=== PATIENT | male | born 1950 | race Caucasian/White ===

== ENCOUNTER 2019-04-10 01:51 | Emergency (ER) | payer MEDICARE ==
[~2019-04-10] VITALS: Ht 177.8 cm; Wt 97.3 kg
[~2019-04-10 01:51] MED LIST: AMLO10TA PO; ASPI-611 PO; ATOR20TA66 PO; BENA20TA76 PO; CALC-793 PO; DICL75TA5 PO; HYDR-4353 PO; KETO15CR2 TOP; LEVO75TA7 PO; MAGN400C PO; METF-436 PO; MULT-955 PO; ZOLP5TAB8 PO
[2019-04-10] MEDS ORDERED: LIDOcaine Viscous 15ml cup PO ONE (03:25)
[2019-04-10] MEDS ORDERED: mag hydrox/Alum hydrox/simeth 30ml oral suspension PO ONE (03:25)
[2019-04-10] MEDS ORDERED: normal saline 1000ML IV soln IVB ONE (03:25)
[2019-04-10] MEDS ORDERED: iohexol 300mg/ml 100ml inj. ONE (03:31)
--- NOTE | 2019-04-10 03:31 | NUR ---
DR SHERWOOD AT [facility] AND ORDERING CT OF NECK WITH CONTRAST. PT WITH STABLE VS. GIVEN LIDOCAIN AND MALOXX.
--- NOTE | 2019-04-10 03:57 | NUR ---
LABS DRAWN, PIV IN PLACE NS 500 LITER BOLUS INFUSING. PT REPORTS NO CHANGE IN PAIN AFTER MALOX AND LIDOCAINE.
[2019-04-10] MEDS ORDERED: MESSAGE TO NURSING PO NR (04:00)
[2019-04-10 04:20] LABS: BASOPHILS # (AUTO) 0.2 X10'3 (0-0.2); HEMOGLOBIN 14.7 g/dl (14.0-17.9); MEAN CORPUSCULAR HEMOGLOBIN 30.2 PG (27.0-31.0)
[2019-04-10 04:21] LABS: BASOPHILS % (AUTO) 1.2 % (0-1); EOSINOPHILS # (AUTO) 0.4 X10'3 (0-0.9); EOSINOPHILS % (AUTO) 3.2 % (0-6); HEMATOCRIT 43.8 % (42.0-52.0); LYMPHOCYTES # (AUTO) 1.6 X10'3 (1.1-4.8); LYMPHOCYTES % (AUTO) 12.9 % (21-51); MEAN CORPUSCULAR HGB CONC 33.5 g/dL (33.0-36.5); MEAN CORPUSCULAR VOLUME 90.2 FL (78-98); MEAN PLATELET VOLUME 8.5 FL (7.4-10.4); MONOCYTES % (AUTO) 7.6 % (2-12); NEUTROPHILS # (AUTO) 9.5 X10'3 (1.8-7.7); NEUTROPHILS % (AUTO) 75.1 % (42-75); PLATELET COUNT 271 X10'3 (140-440); RED BLOOD COUNT 4.86 X10'6 (4.70-6.10); RED CELL DISTRIBUTION WIDTH 14.6 % (11.5-14.5); WHITE BLOOD COUNT 12.7 X10'3 (4.5-11.0)
[2019-04-10 04:22] LABS: ALANINE AMINOTRANSFERASE 63 U/L (12-78); ALBUMIN 4.3 G/DL (3.4-5.0); ALBUMIN/GLOBULIN RATIO 1.1 (1.1-1.5); ALKALINE PHOSPHATASE 51 IU/L (46-116); ANION GAP 9 (8-16); ASPARTATE AMINO TRANSFERASE 30 U/L (10-37); BILIRUBIN,TOTAL 0.7 MG/DL (0.1-1.0); CALCIUM 8.9 MG/DL (8.5-10.1); CHLORIDE 103 MMOL/L (99-107); CREATININE 1.07 MG/DL (0.60-1.10); GLUCOSE 117 MG/DL (70-104); POTASSIUM 4.3 MMOL/L (3.5-5.1); SODIUM 138 MMOL/L (135-145); TOTAL CARBON DIOXIDE 25.9 MMOL/L (24-32); TOTAL PROTEIN 8.2 G/DL (6.4-8.2); eGFR 69 ML/MIN
[2019-04-10 04:27] LABS: BLOOD UREA NITROGEN 15 MG/DL (7-18)
--- NOTE | 2019-04-10 04:38 | NUR ---
PT AMBULASTED TO CT WITH CONTINUITY EDITOR
--- NOTE | 2019-04-10 05:05 | NUR ---
AWAITING CT RESULTS. DR. SHERWOOD UPDATED THAT PT WITH NO IMPROVEMENT IN HIS PAIN AFTER GIVEN LIDOCAINE AND MALOX, SHE RERPOTS SHE WILL REEVALUATE WHE CT RESULT IS IN . PT WITH STABLE VS.
[2019-04-10] MEDS ORDERED: LIDOcaine 1% W/epiNEPHrine 1:100,000 20ml vial IJ ONE (05:10)
--- NOTE | 2019-04-10 05:30 | NUR ---
DR ABDULLAHI AT BEDSIDE TO ASPIRATE FLUID OF THOART ABCESS. PT TOLERATED APPROPIRATLY NO ACUTE DISTRESS NOTED
[2019-04-10] MEDS ORDERED: clindamycin 150mg capsule PO ONE (06:15)
--- NOTE | 2019-04-10 06:15 | NUR ---
REMINDED PT THAT HE IS NOT TO TAKE METAFORIN FOR 48 HR PAST 04/10/19 [id number]
[2019-04-10] MEDS ORDERED: clindamycin 600mg/D5W 50ml 50 ML IV ONE (06:20)
[2019-04-10] MEDS ORDERED: CLIN-96 PO (06:29)
[2019-04-10] MEDS ORDERED: HYDR-3965 PO (06:29)
[2019-04-10] MEDS ORDERED: ibuprofen 200mg tablet PO ONE (06:35)
--- NOTE | 2019-04-10 06:57 | NUR ---
awaiting iv abt to finished.
[2019-04-10 07:31] VITALS: BP 135/79
== END 2019-04-10 07:33 | disposition home or self-care (01) ==
LOC: ER 01:52
DX: J36 Peritonsillar abscess (principal); E78.00 Pure hypercholesterolemia, unspecified; I10 Essential (primary) hypertension; G47.30 Sleep apnea, unspecified; E11.9 Type 2 diabetes mellitus without complications; E07.9 Disorder of thyroid, unspecified; G89.29 Other chronic pain; Z95.0 Presence of cardiac pacemaker; Z98.890 Other specified postprocedural states; Z95.1 Presence of aortocoronary bypass graft; Z79.82 Long term (current) use of aspirin; Z79.899 Other long term (current) drug therapy; Z79.84 Long term (current) use of oral hypoglycemic drugs
CPT/HCPCS: 36415; 70491; 80053; 85025; 87081; 96365; 96375; 99284; J7040; Q9967; 87070; J3490

== ENCOUNTER 2021-10-26 09:00 | Day surgery (SDC) | payer MEDICARE ==
[2021-10-25 10:35] LABS: BASOPHILS % (AUTO) 0.3 % (0-1); EOSINOPHILS # (AUTO) 0.3 X10'3 (0-0.9); EOSINOPHILS % (AUTO) 5.3 % (0-6); HEMATOCRIT 41.6 % (42.0-52.0); HEMOGLOBIN 13.7 g/dl (14.0-17.9); LYMPHOCYTES # (AUTO) 1.4 X10'3 (1.1-4.8); LYMPHOCYTES % (AUTO) 23.7 % (21-51); MEAN CORPUSCULAR HEMOGLOBIN 28.8 PG (27.0-31.0); MEAN CORPUSCULAR HGB CONC 32.9 g/dL (33.0-36.5); MEAN CORPUSCULAR VOLUME 87.5 FL (78-98); MONOCYTES # (AUTO) 0.5 X10'3 (0-0.9); MONOCYTES % (AUTO) 9.5 % (2-12); NEUTROPHILS # (AUTO) 3.5 X10'3 (1.8-7.7); NEUTROPHILS % (AUTO) 61.2 % (42-75); PLATELET COUNT 273 X10'3 (140-440); RED BLOOD COUNT 4.75 X10'6 (4.70-6.10); RED CELL DISTRIBUTION WIDTH 14.9 % (11.5-14.5); WHITE BLOOD COUNT 5.7 X10'3 (4.5-11.0)
[2021-10-25 10:40] LABS: ALBUMIN 3.9 G/DL (3.4-5.0); BLOOD UREA NITROGEN 16 MG/DL (7-18); BUN/CREATININE RATIO 18.6 (5.4-32.0); CALCIUM 8.9 MG/DL (8.5-10.1); CHLORIDE 103 MMOL/L (99-107); CREATININE 0.86 MG/DL (0.60-1.10); GLUCOSE 128 MG/DL (70-104); POTASSIUM 4.5 MMOL/L (3.5-5.1); SODIUM 138 MMOL/L (135-145); eGFR 88 ML/MIN
[2021-10-25 10:42] LABS: ANION GAP 11 (8-16); TOTAL CARBON DIOXIDE 24.2 MMOL/L (24-32)
[2021-10-25 10:44] LABS: APTT 27 SECONDS (22-32)
[~2021-10-26] VITALS: Ht 175.3 cm; Wt 92.7 kg
[2021-10-26] VITALS (13 sets, daily range): BP systolic 101–152; BP diastolic 59–80
[~2021-10-26 09:00] MED LIST changes: -ASPI-611 PO; -ATOR20TA66 PO; -CALC-793 PO; -HYDR-4353 PO; -MAGN400C PO
[2021-10-26] MEDS ORDERED: normal saline 1,000 ML IV SCH (09:15)
[2021-10-26] MEDS ORDERED: LORazepam 0.5 MG tablet PO PRN (09:15)
[2021-10-26] MEDS ORDERED: diphenhydrAMINE 25mg capsule PO PRN (09:15)
[2021-10-26] MEDS ORDERED: MONT-40 PO (09:48)
[2021-10-26] MEDS ORDERED: CARV-50 PO (09:48)
[2021-10-26] MEDS ORDERED: ATOR40TA72 PO (09:48)
[2021-10-26] MEDS ORDERED: HYDR-3964 PO (09:48)
[2021-10-26] MEDS ORDERED: ZOLP10TA PO (09:48)
[2021-10-26] MEDS ORDERED: CLOP75TA34 PO (09:48)
[2021-10-26] MEDS ORDERED: OMEG1CAP21 PO (09:51)
[2021-10-26] MEDS ORDERED: ASPI-1053 PO (09:51)
[2021-10-26] MEDS ORDERED: UBID200C18 PO (09:51)
[2021-10-26] MEDS ORDERED: midazolam 1 mg/ML 2ml injection ONE ×2 (10:21→11:43)
[2021-10-26] MEDS ORDERED: heparin 1,000unit/ml 10ml vial 10 ML ONE (10:21)
[2021-10-26] MEDS ORDERED: fentaNYL/PF 50MCG/1 ML 2ML syringe ONE (10:21)
[2021-10-26] MEDS ORDERED: iohexol 350MG/ML 100ml bottle IV ONE ×2 (10:21→11:27)
[2021-10-26] MEDS ORDERED: iohexol 350 MG/ML 50ML vial IV ONE (10:21)
[2021-10-26] MEDS ORDERED: nitroGLYCERIN-Tridil 50MG/D5W 250 ML IV ONE (10:21)
[2021-10-26] MEDS ORDERED: LIDOcaine 1% (10mg/ml)w/preservative inj. 20ml MDV ONE (10:27)
--- NOTE | 2021-10-26 10:32 | NUR ---
Pt to laborer wharf, Report to Ta MOREL
[2021-10-26] MEDS ORDERED: verapamil 2.5 mg/ml inj IV ONE (10:46)
[2021-10-26] MEDS ORDERED: heparin 25,000 UNIT/250ml bag 0 ML IV ONE (11:27)
--- NOTE | 2021-10-26 12:20 | NUR ---
Received pt from stores laborer. VSS, Vasc band to right radial site. no bleeding, bruising or hematoma noted. Denies pain.
--- NOTE | 2021-10-26 12:45 | NUR ---
Pt sitting up in bed eating and drinking without difficulty. VSS, denies pain.
--- NOTE | 2021-10-26 13:15 | NUR ---
Pt amb to restroom, gait steady, void in toilet. VSS. Right vasc band site CD&I
--- NOTE | 2021-10-26 15:35 | NUR ---
Phoned Dr. Craven re: pt DC home time. Okay to DC home in 1 hour, Dr. Craven will come by to talk to pt before DC home.
--- NOTE | 2021-10-26 16:00 | NUR ---
Dr. Craven at bedside talking with pt, questions answered. VSS, dressing to right radial site CD&I.
--- NOTE | 2021-10-26 16:30 | NUR ---
Written and verbal DC instructions given to pt, verbalizes understanding. PIV DC cath intact, VSS, denies pain. Right radial site stable no bleeding, bruising or hematoma noted. Pt stood at bedside steady on feet, amb to restroom void in toilet. Pt able to dress self.
--- NOTE | 2021-10-26 17:00 | NUR ---
DC to home with son. Transferred to private car via WC, pt able to transfer self to car without assistance.
== END 2021-10-26 17:00 | disposition home or self-care (01) ==
LOC: SSTAY O 09:00
PROVIDERS: ATTEND Internal Medicine Cardiovascular Disease
DX: R94.39 Abnormal result of other cardiovascular function study (principal); I25.119 Atherosclerotic heart disease of native coronary artery with unspecified angina pectoris; I25.82 Chronic total occlusion of coronary artery; I10 Essential (primary) hypertension; E78.5 Hyperlipidemia, unspecified; E11.9 Type 2 diabetes mellitus without complications; E03.9 Hypothyroidism, unspecified; G47.00 Insomnia, unspecified; I65.29 Occlusion and stenosis of unspecified carotid artery; Z95.5 Presence of coronary angioplasty implant and graft; Z95.0 Presence of cardiac pacemaker; Z79.899 Other long term (current) drug therapy; Z79.82 Long term (current) use of aspirin; Z79.84 Long term (current) use of oral hypoglycemic drugs; Z98.890 Other specified postprocedural states
CPT/HCPCS: 36415; 80048; 82948; 85025; 85610; 85730; 92920; 93005; 93458; 99152; 99153; C1725; C1751; C1769; C1894; J1644; J2250; J3010; J3490; Q0163; Q9967; A4620; A6258

== ENCOUNTER 2023-05-07 14:41 | Emergency (ER) | payer MEDICARE, OTHER ==
[~2023-05-07] VITALS: Ht 175.3 cm; Wt 120.0 kg
[~2023-05-07 14:41] MED LIST changes: +ASPI-1053 PO; +ATOR40TA72 PO; +CARV-50 PO; +CLOP75TA34 PO; -DICL75TA5 PO; +HYDR-3964 PO; -KETO15CR2 TOP; -LEVO75TA7 PO; +MONT-40 PO; -MULT-955 PO; +OMEG1CAP21 PO; +UBID200C18 PO; +ZOLP10TA PO; -ZOLP5TAB8 PO
[2023-05-07 14:59] VITALS: TEMP 97.8
[2023-05-07 19:20] VITALS: BP 186/96; PULSE 60; O2SAT 98
[2023-05-07] MEDS ORDERED: CYCL-1 PO (20:49)
[2023-05-07] MEDS ORDERED: ketorolac tromethamine 15mg/ml inj. IM ONE (20:50)
[2023-05-07 21:08] VITALS: RESP 18
== END 2023-05-07 21:14 | disposition home or self-care (01) ==
LOC: ER 14:41
DX: S16.1XXA Strain of muscle, fascia and tendon at neck level, initial encounter (principal); E78.00 Pure hypercholesterolemia, unspecified; I10 Essential (primary) hypertension; E11.9 Type 2 diabetes mellitus without complications; G89.29 Other chronic pain; M54.9 Dorsalgia, unspecified; X58.XXXA Exposure to other specified factors, initial encounter; Y93.89 Activity, other specified; Y92.89 Other specified places as the place of occurrence of the external cause; Y99.8 Other external cause status
CPT/HCPCS: 72125; 96372; 99285; J1885

== ENCOUNTER 2023-05-10 14:12 | Emergency (ER) | payer MEDICARE, OTHER ==
[~2023-05-10] VITALS: Ht 177.8 cm; Wt 88.8 kg
[~2023-05-10 14:12] MED LIST changes: +CYCL-1 PO
[2023-05-10 16:29] VITALS: BP 147/81; PULSE 60; RESP 16; TEMP 98; O2SAT 98
== END 2023-05-10 16:30 | disposition home or self-care (01) ==
LOC: ER 14:13
DX: S06.0X1D Concussion with loss of consciousness of 30 minutes or less, subsequent encounter (principal); S13.4XXD Sprain of ligaments of cervical spine, subsequent encounter; R53.83 Other fatigue; E78.00 Pure hypercholesterolemia, unspecified; I10 Essential (primary) hypertension; E11.9 Type 2 diabetes mellitus without complications; Z79.899 Other long term (current) drug therapy; Z79.82 Long term (current) use of aspirin; V59.9XXD Occupant (driver) (passenger) of pick-up truck or van injured in unspecified traffic accident, subsequent encounter
CPT/HCPCS: 70450; 99284

== ENCOUNTER 2023-10-24 08:52 | Day surgery (SDC) | payer MEDICARE ==
[2023-10-23 09:35] LABS: BASOPHILS # (AUTO) 0.1 X10'3 (0-0.2); BASOPHILS % (AUTO) 1.5 % (0-1); EOSINOPHILS # (AUTO) 0.2 X10'3 (0-0.9); EOSINOPHILS % (AUTO) 5.2 % (0-6); HEMATOCRIT 43.7 % (42.0-52.0); HEMOGLOBIN 14.5 g/dl (14.0-17.9); LYMPHOCYTES # (AUTO) 1.4 X10'3 (1.1-4.8); LYMPHOCYTES % (AUTO) 30.3 % (21-51); MEAN CORPUSCULAR HGB CONC 33.2 g/dL (33.0-36.5); MEAN CORPUSCULAR VOLUME 90.4 FL (78-98); MEAN PLATELET VOLUME 7.6 FL (7.4-10.4); MONOCYTES # (AUTO) 0.5 X10'3 (0-0.9); MONOCYTES % (AUTO) 10.7 % (2-12); NEUTROPHILS # (AUTO) 2.4 X10'3 (1.8-7.7); NEUTROPHILS % (AUTO) 52.3 % (42-75); PLATELET COUNT 245 X10'3 (140-440); RED BLOOD COUNT 4.83 X10'6 (4.70-6.10); RED CELL DISTRIBUTION WIDTH 15.4 % (11.5-14.5); WHITE BLOOD COUNT 4.6 X10'3 (4.5-11.0)
[2023-10-23 09:44] LABS: ALBUMIN 3.9 G/DL (3.4-5.0); ANION GAP 7 (8-16); BLOOD UREA NITROGEN 17 MG/DL (7-18); BUN/CREATININE RATIO 15.5 (10.0-20.0); CALCIUM 8.8 MG/DL (8.5-10.1); CHLORIDE 105 MMOL/L (99-107); GLUCOSE 124 MG/DL (70-104); POTASSIUM 4.2 MMOL/L (3.5-5.1); SODIUM 138 MMOL/L (135-145); TOTAL CARBON DIOXIDE 26.1 MMOL/L (24-32); eGFR 66 ML/MIN
[2023-10-23 09:49] LABS: PROTHROMBIN TIME 10.7 SECONDS (9.0-12.0)
[2023-10-23 09:52] LABS: APTT 27 SECONDS (22-32)
[~2023-10-24] VITALS: Ht 177.8 cm; Wt 94.3 kg
[2023-10-24] VITALS (11 sets, daily range): BP systolic 122–168; BP diastolic 63–88; PULSE 60–63; RESP 16; TEMP 98.1; O2SAT 93–97
[2023-10-24] MEDS ORDERED: normal saline 1,000 ML IV SCH (09:10)
[2023-10-24] MEDS: LORazepam 0.5 MG tablet PO PRN (09:50)
[2023-10-24] MEDS: diphenhydrAMINE 25mg capsule PO PRN (09:51)
[2023-10-24] MEDS ORDERED: LIDOcaine 1% (10mg/ml) 2ml vial ONE (12:34)
[2023-10-24] MEDS ORDERED: midazolam 1 mg/ML 2ml injection ONE (12:34)
[2023-10-24] MEDS ORDERED: fentaNYL/PF 50MCG/1 ML 2ML syringe ONE (12:34)
[2023-10-24] MEDS ORDERED: verapamil 2.5 mg/ml inj IV ONE (12:34)
[2023-10-24] MEDS ORDERED: iohexol 350 MG/ML 50ML vial IV ONE (12:35)
[2023-10-24] MEDS ORDERED: iohexol 350MG/ML 100ml bottle IV ONE (12:35)
[2023-10-24] MEDS ORDERED: heparin 1,000unit/ml 10ml vial 10 ML ONE (12:35)
[2023-10-24] MEDS ORDERED: nitroGLYCERIN 500mcg/5mL D5W 5 ML IV ONE (12:36)
[2023-10-24] MEDS ORDERED: normal saline 1000ml 1,000 ML IV SCH (14:10)
== END 2023-10-24 17:30 | disposition home or self-care (01) ==
LOC: SSTAY O 08:52
PROVIDERS: ATTEND Internal Medicine Cardiovascular Disease
DX: I25.119 Atherosclerotic heart disease of native coronary artery with unspecified angina pectoris (principal); I25.82 Chronic total occlusion of coronary artery; I49.5 Sick sinus syndrome; Z95.0 Presence of cardiac pacemaker; I44.0 Atrioventricular block, first degree; I65.29 Occlusion and stenosis of unspecified carotid artery; I10 Essential (primary) hypertension; E78.5 Hyperlipidemia, unspecified; E11.9 Type 2 diabetes mellitus without complications; E03.9 Hypothyroidism, unspecified; G47.00 Insomnia, unspecified; Z95.5 Presence of coronary angioplasty implant and graft; Z79.84 Long term (current) use of oral hypoglycemic drugs; Z79.82 Long term (current) use of aspirin; Z79.01 Long term (current) use of anticoagulants; Z79.899 Other long term (current) drug therapy; Z98.890 Other specified postprocedural states; Z82.49 Family history of ischemic heart disease and other diseases of the circulatory system
CPT/HCPCS: 36415; 76937; 80048; 85025; 85610; 85730; 93005; 93458; 99152; J1644; J2250; J3010; J3490; J7030; Q0163; Q9967; A6258; A6402; C1725; C1894

== ENCOUNTER 2023-12-15 03:17 | Emergency (ER) | payer MEDICARE ==
[~2023-12-15] VITALS: Ht 177.8 cm; Wt 93.0 kg
[~2023-12-15 03:17] MED LIST changes: -CYCL-1 PO; -MONT-40 PO; -OMEG1CAP21 PO; -UBID200C18 PO
[2023-12-15] MEDS ORDERED: methylPREDNISolone sod succ 125mg/2ml vial IV STA (06:38)
[2023-12-15] MEDS ORDERED: ALBU8HFA IH (07:09)
[2023-12-15] MEDS ORDERED: PRED20TA PO (07:09)
[2023-12-15] MEDS ORDERED: ROBDML PO (07:10)
[2023-12-15] MEDS: methylPREDNISolone sod succ 125mg/2ml vial IM STA (07:56)
[2023-12-15 07:58] VITALS: BP 149/83; TEMP 98.1
[2023-12-15] MEDS: albuterol 2.5 MG/3 ML nebule NEB ONE (08:06)
[2023-12-15] MEDS: ipratropium 0.5 MG/2.5ML nebule IH ONE (08:06)
[2023-12-15 08:08] VITALS: PULSE 60; RESP 16; O2SAT 97
[2023-12-15 08:14] VITALS: PULSE 60; RESP 16; O2SAT 100
== END 2023-12-15 08:29 | disposition home or self-care (01) ==
LOC: ER 03:17
DX: J06.9 Acute upper respiratory infection, unspecified (principal); R05.9 Cough, unspecified; R09.89 Other specified symptoms and signs involving the circulatory and respiratory systems; R06.02 Shortness of breath; E11.9 Type 2 diabetes mellitus without complications; I10 Essential (primary) hypertension
CPT/HCPCS: 71046; 94640; 94760; 96372; 99283; J2919